=== PATIENT | female | born 1950 ===

== ENCOUNTER 2017-07-26 07:40 | Day surgery (SDC) | payer BC ==
[~2017-07-26 07:40] MED LIST: Buffered Lidocaine 0.9% SYRIN* 5 ML/SYR SYRINGE INTRADERM ONE; Dexamethasone IV* 4 MG/ML 1 ML (4 MG) IV SLOW PU ONE; Dexamethasone IV* 4 MG/ML 1 ML (4 MG) ONE; Famotidine IV* 10 MG/ML 2 ML (20 mg) IV ONE; Famotidine IV* 10 MG/ML 2 ML (20 mg) ONE; ceFAZolin 2 GM PREMIX (*) 2 GM/50 ML BAG IVPB ONE
[2017-07-26] MEDS ORDERED: fentaNYL* 50 MCG/ML 5 ML VIAL (250 MCG VIAL) ONE (09:11)
[2017-07-26] MEDS ORDERED: Midazolam* 1 MG/ML 2 ML VIAL (2 MG) ONE (09:11)
[2017-07-26] MEDS ORDERED: Ketorolac INJ* 30 MG/ML 1 ML VIAL ONE (09:12)
[2017-07-26] MEDS ORDERED: Propofol* 10 MG/ML 20 ML BTL IV PUSH ONE (09:12)
[2017-07-26] MEDS ORDERED: Lidocaine 2% PF * 5 ML VIAL ONE (09:12)
[2017-07-26] MEDS ORDERED: Atracurium* 10 MG/ML 10 ML VIAL ONE (09:36)
[2017-07-26] MEDS ORDERED: Bupivacaine 0.5% SDV PF* 30 ML VIAL ONE (09:47)
[2017-07-26] MEDS ORDERED: oxyCODONE/Acetamin 5/325 MG* TAB PO PRN (10:12)
[2017-07-26] MEDS ORDERED: Ondansetron INJ* 2 MG/ML VIAL IV PRN (10:12)
[2017-07-26] MEDS ORDERED: HYDROmorphone INJ* 1 MG/ML CARPUJECT SYRINGE IV PRN (10:12)
[2017-07-26] MEDS ORDERED: DiMENhydriNATE IV* 50 MG/ML VIAL IV PUSH PRN (10:12)
[2017-07-26] MEDS ORDERED: fentaNYL* 50 MCG/ML 2 ML VIAL (100 MCG VIAL) IV PRN (10:12)
[2017-07-26 14:35] VITALS: BP 125/76
--- NOTE | 2017-07-26 22:36 | RAD ---
CPT II Codes: 6045F INDICATION: Fracture of the left small finger proximal femoral TECHNIQUE: Intraoperative fluoroscopy was provided during percutaneous ORIF. FINDINGS: 10 spot films depict percutaneous pin placement spanning the fractured left small finger proximal phalanx.. Fluoroscopy time: 259 seconds IMPRESSION: As above.
--- NOTE | 2017-07-31 00:29 | OP ---
DATE OF OPERATION: 07/26/17 - [facility] DATE OF : 54 SURGEON: Piter Ruiz MD STRIPER: DONNA Davila. A physician physician assistant certified was required for the length of the procedure for manipulation of the hand and forearm and positioning. ANESTHESIOLOGIST: Dr. Emre Crandall. ANESTHESIA: General anesthesia. PRE-OP DIAGNOSIS: Displaced left small finger proximal phalanx fracture. POST-OP DIAGNOSIS: Displaced left small finger proximal phalanx fracture. OPERATIVE PROCEDURE: Closed reduction, percutaneous pinning, left small finger proximal phalanx fracture, displaced. ANTIBIOTICS: Ancef 2 g IV. IV FLUIDS: 600 cc crystalloid. ESTIMATED BLOOD LOSS: Minimal. COMPLICATIONS: None. SPECIMEN: None. IMPLANTS: Two K wires, 0.045 in size. INDICATIONS FOR PROCEDURE: The patient is a 66-year-old woman, right hand dominant, who works doing manual laboring at [employer], who fractured her left small finger proximal phalanx on 07/16/17. This happened when she fell to the ground on to her left hand when her puppy suddenly pulled the leash that she was holding the puppy with. The patient saw me in clinic. I casted her in an intrinsic plus position. I noted by x-ray imaging that the patient had a comminuted extra-articular fracture of the shaft at the small finger proximal phalanx. The patient had a significant hyperextension or extension deformity of the fracture. Therefore, we decided to take the patient to the operating room to perform a closed reduction percutaneous pinning. I discussed the risks and potential complications of the procedure including bleeding, infection, nerve or blood vessel injury, small finger stiffness, pain , hardware complication. We just talked about the high probability of proximal interphalangeal joint stiffness regardless of how the injury was treated. I booked the case for closed reduction percutaneous pinning versus open reduction internal fixation just on the unlikely chance that this fracture could not be closed reduced and would require open reduction and screws and/or plate placement. DESCRIPTION OF PROCEDURE: Preoperative written consent was signed in the preoperative holding. Operative extremity and finger were marked in preoperative holding. The patient was taken back to the operating room and placed on the operating room table. A hand table was attached to the table. General anesthesia was induced. A tourniquet was placed on the left upper arm but was not inflated. The left upper extremity was prepped and draped. Mini C-arm was draped. A surgical time-out was performed. It should be noted, that one issue unrelated to the small finger itself was dealt with in preoperative holding and in the operating room prior to prep and drape. The patient had a wedding and engagement ring, fused together, on her ring finger. The patient had been loathe to have those cut or removed when in my clinic and when in the emergency department. She had not removed them for many years. In preoperative holding, myself as well as anesthesiologist, Dr. Crandall, discussed with the patient the danger of not removing the ring. The patient eventually conceded to having it removed if we could, once the patient was fully anesthetized in the operating room. Before prep and drape, we applied umbilical tape to the left ring finger. Using this, we were able to remove the rings from the ring finger. There was a tiny skin slough about the PIP joint of the ring finger. Otherwise, this was entirely atraumatic. The rings were returned to the patient's by Keanu Borrego, intraoperatively just to make sure that they were not misplaced. They acknowledged postoperatively receiving these rings. Once the patient was prepped and draped, I brought the mini C-arm in. The surgical time-out had been performed. I closed reduced the fracture. It lined up quite nicely. A rotation of the fracture fragments appeared excellent as the digital cascade was intact. Most of the fracture planes were in the radial proximal to ulnar distal direction. In the sagittal plane, the extension deformity had been removed entirely. In the coronal plane, there was perhaps 1 mm of displacement or less of the shaft but it appeared excellent. A 0.045 K-wire was introduced into the ulnar base of the proximal phalanx. It was advanced bicortically out the distal radial aspect of the shaft of the proximal phalanx. This was placed with the proximal phalanx in the reduced position. It took several passes but I then placed a pin from the radial base of the proximal phalanx. This pin stayed within bone, in the proximal phalanx and embedded in the subchondral bone about the distal end of the proximal phalanx. I took a number of x-ray views, AP, lateral and multiple obliques. I liked the position of the fracture fragments. I liked the position of the pins. The construct felt stable. The rotation of the finger appeared excellent with an intact digital cascade. The pins were shortened. I then bent the ends and cut them again. Safety balls were placed on the end of the K wires. The K wires were wrapped with Xeroform, then 4x4's were placed around them. Cap refill was less than 2 seconds, excellent at the end of the small finger. We then placed an ulnar gutter splint, which immobilized the small and ring finger in a lazy intrinsic plus position. The patient was awakened and brought to the PACU. DISPOSITION: There was a question of some discomfort by the patient in the PACU. She spoke with nursing about some chafing at the proximal most extent of the splint. She left and went home rather than waiting for me to examine the splint. The patient received Keflex, an almost 7-day course for infection prophylaxis. The patient already had a supply of Percocet to treat her back pain, so we did not provide her more. The patient will follow up in 7 to 10 days for removal of splint, x-ray images, wound check, and ulnar gutter cast placement. [id number]/[facility] #: [id number] MTDD
== END 2017-07-26 12:45 | disposition home or self-care (01) ==
LOC: OR 07:40
PROVIDERS: ATTEND Orthopaedic Surgery
DX: S62.617A Displaced fracture of proximal phalanx of left little finger, initial encounter for closed fracture (principal); W18.39XA Other fall on same level, initial encounter; Y92.9 Unspecified place or not applicable
CPT/HCPCS: 76001; J0690; J1100; J1885; J2250; J2704; J3010